=== PATIENT | male | born 1975 | race Caucasian/White ===

== ENCOUNTER → 2017-03-27 | Outpatient (CLI) | payer BC ==
[~2017-03-27] MED LIST: ADAL40PE4 SQ; ASCO250T86 PO; DOCU-416 PO; DOCU100C49 PO; HYDR-2966 PO; IBUP-1671 PO; MELO-207 PO; MULT1TAB64 PO; OXYB10TA21 PO; OXYC-865 PO; PHEN200T32 PO; TAMS0.4C25 PO; TAMS0.4C70 PO; VITA-198 PO
--- NOTE | 2017-03-27 15:56 | RADIOLOGY IMAGING REPORT ---
FACILITY: [facility] [place] PATIENT NAME: Edy Hu : 1975 MR: [id number] V: [id number] EXAM DATE: ORDERING PHYSICIAN: BHANU CLIFFORD TECHNOLOGIST: Location: [facility] Patient: Edy Hu : 1975 Visit/Account:[id number] Date of Sevice: 03/27/2017 ABDOMEN PELVIS ESWL CYSTO W/O HISTORY: Kidney stone history TECHNIQUE: Axial images acquired through the abdomen/pelvis. Coronal and sagittal reformatting also performed. No IV contrast administered. Dose Lowering Technique One of the following dose optimization techniques was utilized in the performance of this exam: Autom ated exposure control; adjustment of the mA and/or kV according to the patient's size; or use of an i terative reconstruction technique. Specific details can be referenced in the facility's radiology C T exam operational policy. COMPARISON: Interval 07/09/2015 FINDINGS: Visualized lung bases: Negative. Hepatobiliary: Gallbladder is contracted which could be related to a recent meal. . Liver is incom pletely imaged although appears grossly unremarkable on this noncontrast enhanced study Spleen: Incompletely imaged although the visualized portion appears unremarkable on this noncontrast enhanced study Adrenals: Negative. Pancreas: Negative. Kidneys ureters and bladder: There is a 4 mm calculus at the junction of the proximal middle thirds o f the right ureter with mild fullness of the right renal collecting system and proximal right ureter. There is moderate dilatation of the left renal pelvis and lower pole calyces that appears similar t o the prior study. At least six nonobstructing calculi are seen in the right renal collecting system measuring from 1 mm to 3 mm. At least two calculi are identified in the left renal collecting syste m measuring 3 mm and 5 mm. Urinary bladder is moderately distended Genitalia: Negative. GI: Stomach is markedly distended with particulate material which could be related to a recent meal. Correlation with meal history needed. There is diverticulosis of the left-sided colon although no CT evidence of acute diverticulitis. Vessels/spaces/nodes: Negative. Bones/soft tissues: There are moderate to severe degenerative changes of the right hip joint and mod erate joint changes the left hip joint Additional findings: None pertinent. IMPRESSION: There is a 4 mm calculus at the junction of the proximal and middle thirds of the right ureter with m ild fullness the right renal collecting system and proximal right ureter Nonobstructing calculi seen in both renal collecting systems There is moderate dilatation of the left renal pelvis more pole calyces appear some are to the prior study Stomach is markedly distended with particulate material which could be related to a recent meal. Cor relation with meal history needed Diverticulosis left-sided colon although no CT evidence of acute diverticulitis Degenerative changes of both hip joints moderate to severe on the right and moderate on the left Report Dictated By: Morena Wang MD at 03/27/2017 3:17 PM Report E-Signed By: Morena Wang MD at 03/27/2017 3:52 PM ELIZABETH:[email or web address]-ANN
== END ==
LOC: CT 01:32
PROVIDERS: ATTEND Urology
DX: N20.1 Calculus of ureter (principal); N20.0 Calculus of kidney; K57.30 Diverticulosis of large intestine without perforation or abscess without bleeding
CPT/HCPCS: 74176

== ENCOUNTER → 2017-05-15 | Outpatient (CLI) | payer BC ==
--- NOTE | 2017-05-15 16:02 | RADIOLOGY IMAGING REPORT ---
FACILITY: [facility] PATIENT NAME: Edy Hu : 1975 MR: [id number] V: [id number] EXAM DATE: ORDERING PHYSICIAN: BHANU CLIFFORD TECHNOLOGIST: Location: [facility] [place] Patient: Edy Hu : 1975 Visit/Account:[id number] Date of Sevice: 05/15/2017 ABDOMEN PELVIS ESWL CYSTO W/O HISTORY: Kidney stones TECHNIQUE: Axial images acquired through the abdomen/pelvis. Coronal and sagittal reformatting also performed. No IV contrast administered. Dose Lowering Technique One of the following dose optimization techniques was utilized in the performance of this exam: Autom ated exposure control; adjustment of the mA and/or kV according to the patient's size; or use of an i terative reconstruction technique. Specific details can be referenced in the facility's radiology C T exam operational policy. COMPARISON: March 27, 2017 FINDINGS: Visualized lung bases: Negative. Hepatobiliary: Negative. Spleen: Negative. Adrenals: Negative. Pancreas: Negative. Kidneys ureters and bladder: The previously noted 4 mm calculus at the junction of the proximal middl e thirds of the right ureter is no longer seen. At least five calculi are seen in the right renal co llecting system ranging in size from 1 mm to 4 mm. There are two calculi in the left renal collectin g system largest measuring 5 mm. Again noted is fullness of the left renal pelvis and lower pole niki yces similar to the prior study. Area of the bladder is moderately distended Genitalia: Negative. GI: The stomach is moderately distended with particulate material likely related to a recent meal Vessels/spaces/nodes: Negative. Bones/soft tissues: There moderate severe degenerative changes of the right hip joint and moderate j oint changes of the left hip joint Additional findings: None pertinent. IMPRESSION: Previously noted 4 mm calculus at the junction of the proximal middle thirds of the right ureter is n o longer seen There are nonobstructing calculi seen in both renal collecting systems Bladder is moderately distended Report Dictated By: Morena Wang MD at 05/15/2017 3:51 PM Report E-Signed By: Morena Wang MD at 05/15/2017 4:00 PM WSN:[email or web address]
== END ==
LOC: CT 12:38
PROVIDERS: ATTEND Urology
DX: N20.0 Calculus of kidney (principal)
CPT/HCPCS: 74176

== ENCOUNTER → 2018-01-29 | Outpatient (CLI) | payer BC ==
--- NOTE | 2018-01-29 13:00 | RADIOLOGY IMAGING REPORT ---
FACILITY: [facility] [place] PATIENT NAME: Edy Hu : 1975 MR: [id number] V: [id number] EXAM DATE: ORDERING PHYSICIAN: BHANU CLIFFORD TECHNOLOGIST: Location: [facility] Patient: Edy Hu : 1975 Visit/Account:[id number] Date of Sevice: 01/29/2018 KIDNEYS EXAMINATION: Renal ultrasound. History: Incomplete bladder emptying COMPARISON STUDIES: CT on pelvis May 15, 2017 FINDINGS: Kidneys: Right kidney- 11.3 x 4 x 6.4 cm Left kidney- 14.1 x 6.2 x 5.6 cm Uniform and symmetric blood flow in each kidney by Doppler ultrasound. Hydronephrosis: none Resistive index on the right 0.62 and on the left 0.6 Bladder: The patient was instructed to empty his bladder prior to examination. The bladder volume wa s 412 mL. The patient was then asked to void again and the post void residual was 326 mL. Bilateral ureteral jets are present. Abdominal aorta and IVC: Aorta and IVC are patent by Doppler ultrasound. IMPRESSION: Despite bladder emptying prior to the examination the bladder volume was 412 mL. Patient was then in structed to void again and the post void residual was 326 mL. No evidence of hydronephrosis Report Dictated By: Morena Wang MD at 01/29/2018 12:54 PM Report E-Signed By: Morena Wang MD at 01/29/2018 12:56 PM WSN:[email or web address]
== END ==
LOC: US 01-24 03:11
PROVIDERS: ATTEND Urology
DX: R33.8 Other retention of urine (principal)
CPT/HCPCS: 76705